=== PATIENT | female | born 1990 | race African-American/Black ===

== ENCOUNTER 2023-07-08 10:17 | Emergency (ER) | payer OTHER ==
[2023-07-08 10:27] VITALS: BP 129/87; PULSE 67; RESP 18; TEMP 97.3; BMI 25.0
[2023-07-08] MEDS ORDERED: FAMOTIDINE 20 MG/50 ML IVPB 20 MG/50 ML MG IVPB ONE ×2 (10:32→10:41)
[2023-07-08] MEDS ORDERED: ONDANSETRON 4 MG/2 ML VIAL IVPUSH ONE (10:32)
[2023-07-08] MEDS ORDERED: SODIUM CHLORIDE 0.9% 500 ML INFUS.BAG IV ONE (10:32)
[2023-07-08] MEDS ORDERED: ONDANSETRON 4 MG/2 ML VIAL ONE (10:40)
[2023-07-08 11:10] LABS: HEMATOCRIT 39.9 % (32.4-45.2); HEMOGLOBIN 13.1 GM/dL (10.7-15.3); MCHC 32.9 g/dl (32.0-36.0); MEAN CELL VOLUME 85.3 fl (80-96); MEAN PLT VOLUME 9.5 fl (7.5-11.1); PLATELET COUNT 236 10^3/uL (134-434); RBC 4.68 M/mm3 (3.60-5.2); RDW 12.7 % (11.6-15.6); WHITE BLOOD COUNT 3.1 K/mm3 (4.0-10.0)
[2023-07-08 11:27] LABS: POTASSIUM 3.4 mmol/L (3.5-5.1)
[2023-07-08 11:31] LABS: ALBUMIN 3.4 g/dl (3.4-5.0); CALCIUM 9.5 mg/dL (8.5-10.1)
[2023-07-08 11:32] LABS: BLOOD UREA NITROGEN 6.8 mg/dL (7-18)
[2023-07-08] MEDS ORDERED: POTASSIUM CHLORIDE ORAL LIQUID 20 MEQ/15 ML PO ONE (11:32)
[2023-07-08 11:36] LABS: BILIRUBIN,TOTAL 0.2 mg/dL (0.2-1); TOT PROT 7.5 g/dl (6.4-8.2)
[2023-07-08 11:39] LABS: ANISOCYTOSIS 0; MACROCYTOSIS 0
[2023-07-08] MEDS ORDERED: POTASSIUM CHLORIDE ORAL LIQUID 20 MEQ/15 ML ONE (11:42)
== END 2023-07-08 12:13 | disposition home or self-care (01) ==
LOC: JER 10:17
PROC: 3E033GC Introduction of Other Therapeutic Substance into Peripheral Vein, Percutaneous Approach (ICD-10-PCS; principal; 2023-07-08)
PROC: 3E033GC Introduction of Other Therapeutic Substance into Peripheral Vein, Percutaneous Approach (ICD-10-PCS; 2023-07-08)
DX: R11.2 Nausea with vomiting, unspecified (principal); R19.7 Diarrhea, unspecified
CPT/HCPCS: 36415; 80053; 83690; 85025; 99284-25

== ENCOUNTER 2024-01-23 10:46 | Emergency (ER) | payer OTHER ==
[2024-01-23 11:04] VITALS: BP 114/71; PULSE 63; RESP 18; TEMP 98.1; BMI 24.9
[2024-01-23] MEDS ORDERED: ACETAMINOPHEN 500 MG TABLET (FP) ONE (12:15)
[2024-01-23] MEDS ORDERED: LIDOCAINE 4% PATCH TP ONE (12:15)
[2024-01-23] MEDS ORDERED: METHOCARBAMOL 500 MG TABLET ONE (12:15)
[2024-01-23] MEDS ORDERED: KETOROLAC TROMETHAMINE 30 MG/1 ML VIAL ONE (12:15)
[2024-01-23] MEDS: ACETAMINOPHEN 500 MG TABLET (FP) PO ONE (12:27)
[2024-01-23] MEDS: LIDOCAINE 4% PATCH TP ONE (12:28)
[2024-01-23] MEDS: METHOCARBAMOL 500 MG TABLET PO ONE (12:28)
[2024-01-23] MEDS: KETOROLAC TROMETHAMINE 30 MG/1 ML VIAL IM ONE (12:29)
[2024-01-23] MEDS ORDERED: LIDOCAINE PATCH REMOVAL MC SCH (22:00)
== END 2024-01-23 12:36 | disposition home or self-care (01) ==
LOC: JERFT 10:46
PROC: 3E0133Z Introduction of Anti-inflammatory into Subcutaneous Tissue, Percutaneous Approach (ICD-10-PCS; principal; 2024-01-23)
DX: M54.41 Lumbago with sciatica, right side (principal); M25.552 Pain in left hip
CPT/HCPCS: 99284-25